=== PATIENT | male | born 1940 | race Two or more races ===

== ENCOUNTER 2017-05-29 07:46 | Day surgery (SDC) | payer OTHER ==
[~2017-05-29 07:46] MED LIST: LISINOPRIL20 MG PO; [UNRECOGNIZED DRUG - CODE] IM
== END 2017-05-29 11:10 | disposition home or self-care (01) ==
LOC: AMB-ENDOS 07:46 → CIR.AMB 13:00
DX: C20 Malignant neoplasm of rectum (principal); D12.8 Benign neoplasm of rectum

== ENCOUNTER 2017-06-20 05:40 | Day surgery (SDC) | payer OTHER ==
[2017-06-20] MEDS ORDERED: PERCOCET 5-3251 EACH PO (13:14)
== END 2017-06-20 16:40 | disposition home or self-care (01) ==
LOC: CIR.AMB 05:40
DX: C20 Malignant neoplasm of rectum (principal)
CPT/HCPCS: 36561; C1751

== ENCOUNTER 2017-10-05 10:56 | Outpatient (CLI) | payer OTHER ==
[~2017-10-05 10:56] MED LIST changes: +PERCOCET 5-3251 EACH PO
== END 2017-10-05 11:00 | disposition home or self-care (01) ==
LOC: LAB 10:56
DX: D12.8 Benign neoplasm of rectum (principal); D37.5 Neoplasm of uncertain behavior of rectum; D12.5 Benign neoplasm of sigmoid colon; K62.5 Hemorrhage of anus and rectum; C20 Malignant neoplasm of rectum

== ENCOUNTER 2017-10-16 05:55 | Day surgery (SDC) | payer OTHER | END 2017-10-16 10:30 | disposition home or self-care (01) | LOC: AMB-ENDOS 05:55 | DX: D12.8 Benign neoplasm of rectum (principal) ==

== ENCOUNTER 2017-12-13 08:25 | Outpatient (CLI) | payer OTHER | END 2017-12-13 08:30 | disposition home or self-care (01) | LOC: RAD 08:25 | DX: J82 Pulmonary eosinophilia, not elsewhere classified (principal); J40 Bronchitis, not specified as acute or chronic ==

== ENCOUNTER 2017-12-13 10:31 | Outpatient (CLI) | payer OTHER | END 2017-12-13 11:00 | disposition home or self-care (01) | LOC: NUCLEAR 10:31 | DX: I87.2 Venous insufficiency (chronic) (peripheral) (principal) ==

== ENCOUNTER → 2017-12-30 07:41 | Outpatient (CLI) | payer OTHER | END | disposition home or self-care (01) | LOC: LAB 07:41 | DX: D12.8 Benign neoplasm of rectum (principal); D37.5 Neoplasm of uncertain behavior of rectum; D12.5 Benign neoplasm of sigmoid colon; K62.5 Hemorrhage of anus and rectum; C20 Malignant neoplasm of rectum ==

== ENCOUNTER 2018-01-01 10:46 | Outpatient (CLI) | payer OTHER | END 2018-01-01 10:52 | disposition home or self-care (01) | LOC: LAB 10:46 → EKG 10:46 | DX: D12.8 Benign neoplasm of rectum (principal); D37.5 Neoplasm of uncertain behavior of rectum; Z01.810 Encounter for preprocedural cardiovascular examination ==

== ENCOUNTER 2018-01-05 05:52 | Day surgery (SDC) | payer OTHER ==
[2018-01-05] MEDS ORDERED: ULTRACET PO (10:34)
== END 2018-01-05 13:10 | disposition home or self-care (01) ==
LOC: CIR.AMB 05:52
DX: C20 Malignant neoplasm of rectum (principal)
CPT/HCPCS: 36561; 36590; C1751

== ENCOUNTER 2019-07-19 05:50 | Day surgery (SDC) | payer OTHER ==
[~2019-07-19 05:50] MED LIST changes: +ULTRACET PO
[2019-07-19] MEDS ORDERED: PERCOCET 5-3251 EACH PO (08:44)
== END 2019-07-19 10:15 | disposition home or self-care (01) ==
LOC: CIR.AMB 05:50 → EDSTATUS 10:30 → CIR.AMB 10:30 → SURG 10:30
DX: C20 Malignant neoplasm of rectum (principal)

== ENCOUNTER 2019-09-09 07:30 | Day surgery (SDC) | payer OTHER | END 2019-09-09 14:25 | disposition home or self-care (01) | LOC: AMB-ENDOS 07:30 | PROVIDERS: ATTEND Surgery | DX: K62.89 Other specified diseases of anus and rectum (principal) ==

== ENCOUNTER 2021-02-12 06:40 | Day surgery (SDC) | payer OTHER ==
[2021-02-12] MEDS ORDERED: ULTRACET PO (08:11)
== END 2021-02-12 13:00 | disposition home or self-care (01) ==
LOC: CIR.AMB 06:40
PROVIDERS: ATTEND Surgery
DX: C20 Malignant neoplasm of rectum (principal); Z20.822 Contact with and (suspected) exposure to COVID-19
CPT/HCPCS: 36561; C1751